=== PATIENT | female | born 1950 | race Caucasian/White ===

== ENCOUNTER 2017-10-22 20:05 | Observation (INO) | payer MEDICARE ==
[~2017-10-22] VITALS: Ht 167.6 cm; Wt 92.1 kg
[~2017-10-22 20:05] MED LIST: ALBU0.086 INH; ALPR-138 PO; CARB200T16; CEFT500T PO; FURO20TA PO; IPRA0.02 INH; LOSA25TA31 PO; PHEN30TA32; PRAV40TA PO; PRED10PA PO
[2017-10-22 20:07] VITALS: BP 185/91; PULSE 101; RESP 32; TEMP 98.4; O2SAT 96
[2017-10-22 20:30] VITALS: BP_SYST 213; BP_SYST 214; BP_DIAS 100; BP_DIAS 101; PULSE 93; RESP 28
[2017-10-22] MEDS ORDERED: PRAV20TA2 PO (20:37)
[2017-10-22] MEDS ORDERED: COZA25TA PO (20:37)
[2017-10-22] MEDS ORDERED: LOSA25TA PO (20:37)
[2017-10-22] MEDS ORDERED: PHEN-523 PO (20:37)
[2017-10-22] MEDS ORDERED: ALBU6.7H INH (20:37)
[2017-10-22] MEDS ORDERED: TEGR200T PO (20:37)
[2017-10-22] MEDS ORDERED: FURO1TAB62 PO (20:37)
[2017-10-22] MEDS ORDERED: methylPREDNISolone SOD SUCC 125 MG/2 ML VIAL IV PUSH ONE (20:45)
[2017-10-22] MEDS ORDERED: SODIUM CHLORIDE 0.9% FLUSH 10 ML FLUSH IVF PRN (20:45)
[2017-10-22] MEDS: RESP: ALBUTEROL 2.5 MG/IPRATROPIUM 0.5 MG NEB (SCH) INH ×2 (20:49→20:50)
[2017-10-22 20:50] VITALS: O2SAT 97
[2017-10-22 21:01] LABS: HEMATOCRIT 39.3 % (35.0-46.0); HEMOGLOBIN 13.4 GM/DL (11.6-15.3); MEAN CELL VOLUME 90.9 FL (80.0-100.0); MEAN CORPUSCULAR HEMOGLOBIN 30.9 PG (27.0-34.0); MEAN PLATELET VOLUME 8.3 FL (7.0-11.0); PLATELET COUNT 151 TH/MM3 (150-450); RED BLOOD COUNT 4.32 MIL/MM3 (4.00-5.30); RED CELL DISTRIBUTION WIDTH 12.7 % (11.6-17.2); WHITE BLOOD COUNT 6.9 TH/MM3 (4.0-11.0)
[2017-10-22 21:05] LABS: CHLORIDE 98 MEQ/L (98-107); SODIUM (NA) 132 MEQ/L (136-145)
[2017-10-22 21:08] LABS: ALBUMIN 4.1 GM/DL (3.4-5.0); BICARBONATE 26.5 MEQ/L (21.0-32.0); CALCIUM 9.2 MG/DL (8.5-10.1); GLUCOSE,RANDOM 102 MG/DL (74-106)
[2017-10-22 21:09] LABS: BLOOD UREA NITROGEN 17 MG/DL (7-18)
[2017-10-22 21:11] LABS: ALT (GPT) 25 U/L (10-53); AST (GOT) 28 U/L (15-37)
[2017-10-22 21:12] LABS: CREATININE 0.85 MG/DL (0.50-1.00); GLOMERULAR FILTRATION RATE 66 ML/MIN (>89)
[2017-10-22 21:13] LABS: TOTAL BILIRUBIN ADULT 0.3 MG/DL (0.2-1.0); TOTAL PROTEIN 7.6 GM/DL (6.4-8.2)
[2017-10-22 21:14] LABS: ALKALINE PHOSPHATASE 107 U/L (45-117)
[2017-10-22 21:15] LABS: BANDS 1 % (0-6); LYMPHOCYTES 31 % (9-44); MONOCYTES 6 % (0-8); NEUTROPHIL # MANUAL DIFF 4.3 TH/MM3 (1.8-7.7); POLYS (SEG NEUTROPHILS) 62 % (16-70)
[2017-10-22 21:16] LABS: TROPONIN I LESS THAN 0.02 NG/ML (0.02-0.05)
[2017-10-22 21:23] VITALS: BP 165/76; PULSE 98; RESP 22; O2SAT 98
--- NOTE | 2017-10-22 21:43 | PD ---
HPI Chief Complaint: Respiratory Distress Time Seen by Provider: 20:33 Travel History International Travel<30 days: No Contact w/Intl Traveler<30days: No Traveled to known affect area: No History of Present Illness HPI This 67-year-old woman who presents to the emergency department complaining of cough cold symptoms ongoing for the past week or so. She went to visit family picked up a cold from them. She has a history of COPD. She has been on oxygen in the past but is been doing really well for the past year and has not needed it. Over the past week she has had increase of bronchodilators, increase her oxygen. She has had nonproductive cough. Some chills. No definite fevers. No lower extreme any swelling. Otherwise had been feeling well before that. History Past Medical History Narrative Medical CVA COPD Hyperlipidemia Hypertension Seizure History of DVT, IVC filter in place Social History Alcohol Use: No Tobacco Use: No Allergies-Medications (Allergen,Severity, Reaction): Coded Allergies: morphine (Verified Allergy, Severe, Hives, 10/22/17) propoxyphene (Unverified Allergy, Severe, HIVES, 10/22/17) Reported Meds & Prescriptions Reported Meds & Active Scripts Active Reported Proventil Hfa 6.7 GM Inh (Albuterol Sulfate) 90 Mcg/Act Aer 2 Puff INH Q6H PRN Pravastatin 20 Mg Tab 20 Mg PO DAILY Losartan (Losartan Potassium) 25 Mg Tab 25 Mg PO DAILY Phenobarbital 30 Mg Tab 30 Mg PO TID Cozaar (Losartan Potassium) 25 Mg Tab 25 Mg PO DAILY Lasix (Furosemide) 20 Mg Tab 20 Mg PO DAILY Tegretol (Carbamazepine) 200 Mg Tab 200 Mg PO BID Review of Systems Except as stated in HPI: all other systems reviewed are Neg Physical Exam Narrative GENERAL: Well-appearing 67-year-old woman, mild to moderate respiratory distress per SKIN: Focused skin assessment warm/dry. HEAD: Atraumatic. Normocephalic. EYES: Pupils equal and round. No scleral icterus. No injection or drainage. ENT: No nasal bleeding or discharge. Mucous membranes pink and moist. NECK: Trachea midline. No JVD. CARDIOVASCULAR: Regular rate and rhythm. No murmur appreciated. RESPIRATORY: Decreased breath sounds throughout, quiet, faint wheezing heard. GASTROINTESTINAL: Abdomen soft, non-tender, nondistended. Hepatic and splenic margins not palpable. MUSCULOSKELETAL: No obvious deformities. Trace edema. NEUROLOGICAL: Awake and alert. No obvious cranial nerve deficits. Motor grossly within normal limits. Normal speech. PSYCHIATRIC: Appropriate mood and affect; insight and judgment normal. Data Data Last Documented VS Vital Signs Date Time Temp Pulse Resp B/P (MAP) Pulse Ox O2 Delivery O2 Flow Rate FiO2 10/22/17 22:09 89 28 170/84 (112) 96 Nasal Cannula 2.00 10/22/17 20:07 98.4 Orders Orders Complete Blood Count With Diff (10/22/17 20:36) Comprehensive Metabolic Panel (10/22/17 20:36) Troponin I (10/22/17 20:36) Iv Access Insert/Monitor (10/22/17 20:36) Electrocardiogram (10/22/17 20:36) Ecg Monitoring (10/22/17 20:36) Oximetry (10/22/17 20:36) Oxygen Administration (10/22/17 20:36) Chest, Single Ap (10/22/17 20:36) Sodium Chloride 0.9% Flush (Ns Flush) (10/22/17 20:45) Methylprednisolone So Succ Inj (Solumedr (10/22/17 20:45) Albuterol-Ipratropium Neb (Duoneb Neb) (10/22/17 20:45) B-Type Natriuretic Peptide (10/22/17 20:52) Influenzae A/B Antigen (10/22/17 20:53) Vital Signs (Adult) Q4H (10/22/17 22:39) Activity Oob Ad Nancy (10/22/17 ) Diet Regular Basic (10/23/17 Breakfast) Albuterol-Ipratropium Neb (Duoneb Neb) (10/23/17 00:00) Albuterol Neb (Albuterol Neb) (10/22/17 22:45) Methylprednisolone So Succ Inj (Solumedr (10/22/17 23:00) Azithromycin (Zithromax) (10/22/17 23:00) Resp Oxygen Fer C Titrat 1-4 L (10/22/17 ) Enoxaparin Inj (Lovenox Inj) (10/22/17 23:00) Carbamazepine (Tegretol) (10/23/17 09:00) Furosemide (Lasix) (10/23/17 09:00) Losartan (Cozaar) (10/23/17 09:00) Pravastatin (Pravachol) (10/23/17 09:00) Phenobarbital (Phenobarbital) (10/23/17 09:00) Admit Order (Ed Use Only) (10/22/17 ) Labs Laboratory Tests Test 10/22/17 20:40 White Blood Count 6.9 TH/MM3 Red Blood Count 4.32 MIL/MM3 Hemoglobin 13.4 GM/DL Hematocrit 39.3 % Mean Corpuscular Volume 90.9 FL Mean Corpuscular Hemoglobin 30.9 PG Mean Corpuscular Hemoglobin Concent 34.0 % Red Cell Distribution Width 12.7 % Platelet Count 151 TH/MM3 Mean Platelet Volume 8.3 FL CBC Comment AUTO DIFF Differential Total Cells Counted 100 Neutrophils % (Manual) 62 % Band Neutrophils % 1 % Lymphocytes % 31 % Monocytes % 6 % Neutrophils # (Manual) 4.3 TH/MM3 Differential Comment FINAL DIFF MANUAL Platelet Estimate NORMAL Platelet Morphology Comment NORMAL Red Cell Morphology Comment NORMAL Blood Urea Nitrogen 17 MG/DL Creatinine 0.85 MG/DL Random Glucose 102 MG/DL Total Protein 7.6 GM/DL Albumin 4.1 GM/DL Calcium Level 9.2 MG/DL Alkaline Phosphatase 107 U/L Aspartate Amino Transf (AST/SGOT) 28 U/L Alanine Aminotransferase (ALT/SGPT) 25 U/L Total Bilirubin 0.3 MG/DL Sodium Level 132 MEQ/L Potassium Level 4.2 MEQ/L Chloride Level 98 MEQ/L Carbon Dioxide Level 26.5 MEQ/L Anion Gap 8 MEQ/L Estimat Glomerular Filtration Rate 66 ML/MIN Troponin I LESS THAN 0.02 NG/ML B-Type Natriuretic Peptide 13 PG/ML [facility] Medical Decision Making Medical Screen Exam Complete: Yes Emergency Medical Condition: Yes Interpretation(s) My review of EKG: Normal sinus rhythm at a rate of 96, MI interval little bit short at 119, normal axis, no definite evidence of acute ischemia. CBC is unremarkable. CMP is unremarkable Troponin negative BNP 13 Influenza negative Chest x-ray negative Differential Diagnosis COPD, pneumonia, bronchitis, CHF, ACS, other Narrative Course Medical decision making 67-year-old woman, cough cold symptoms likely COPD exacerbation. Generally looks well. Will check labs, x-ray, reassess. FINAL: 67-year-old woman who presents to the emergency department with COPD exacerbation symptoms, poor air movement in moderate distress still. I still think this is a COPD exacerbation. I do not think she has a PE or occult pneumonia. I spoke with the 4 to healthcare admitting doc. Will admit for observation for COPD exacerbation. Diagnosis Primary Impression: COPD exacerbation Admitting Information Admitting Physician Requests: Observation Disposition: 01 DISCHARGE HOME Condition: Stable Truman Hargrove MD October 22, 2017 21:43
--- NOTE | 2017-10-22 22:03 | RADRPT ---
EXAM DATE/TIME: 10/22/2017 20:51 [facility] COMPARISON: CHEST SINGLE AP, February 24, 2012, 17:26. INDICATIONS : Shortness of breath. MEDICAL HISTORY : None. SURGICAL HISTORY : None. ENCOUNTER: Initial ACUITY: 1 day PAIN SCORE: 0/10 LOCATION: Bilateral chest FINDINGS: A single view of the chest demonstrates the lungs to be symmetrically aerated without evidence of mas s, infiltrate or effusion. The cardiomediastinal contours are unremarkable. Osseous structures are intact. CONCLUSION: No acute disease. Isaiah Salgado MD on October 22, 2017 at 22:01 Board Certified Radiologist. This report was verified electronically.
[2017-10-22 22:09] VITALS: BP 170/84; PULSE 89; RESP 28; O2SAT 96
[2017-10-22] MEDS ORDERED: TEMAZEPAM 15 MG CAP PO PRN (22:45)
[2017-10-22] MEDS ORDERED: RESP: ALBUTEROL 2.5 MG/3 ML NEB (PRN) INH (22:45)
[2017-10-22] MEDS ORDERED: ACETAMINOPHEN 325 MG TAB PO PRN (22:45)
[2017-10-22] MEDS: methylPREDNISolone SOD SUCC 125 MG/2 ML VIAL IV PUSH SCH (23:00)
[2017-10-22] MEDS ORDERED: ENOXAPARIN SODIUM 40 MG/0.4 ML SYRINGE SQ SCH (23:00)
[2017-10-22 23:20] VITALS: BP 172/77; PULSE 87; RESP 26; O2SAT 96
[2017-10-23] VITALS (9 sets, daily range): BP systolic 123–190; BP diastolic 53–98; PULSE 82–96; RESP 18–24; TEMP 97.1–97.9; O2SAT 94–97
[2017-10-23] MEDS: RESP: ALBUTEROL 2.5 MG/IPRATROPIUM 0.5 MG NEB (SCH) INH ×7 (00:29→23:19)
[2017-10-23] MEDS: carBAMazepine 200 MG TAB PO SCH ×3 (01:00→20:36)
[2017-10-23] MEDS: PHENobarbital 32.4 MG TAB PO SCH ×4 (01:00→17:13)
[2017-10-23] MEDS: methylPREDNISolone SOD SUCC 125 MG/2 ML VIAL IV PUSH SCH ×4 (03:10→23:27)
[2017-10-23] MEDS: PRAVASTATIN SOD 20 MG TAB PO SCH (08:09)
[2017-10-23] MEDS: AZITHROMYCIN 250 MG TAB PO SCH (08:09)
[2017-10-23] MEDS: LOSARTAN 25 MG TAB PO SCH (08:09)
[2017-10-23] MEDS: FUROSEMIDE 20 MG TAB PO SCH (08:10)
[2017-10-23] MEDS ORDERED: carBAMazepine 200 MG TAB PO SCH (09:00)
[2017-10-23] MEDS ORDERED: PHENobarbital 32.4 MG TAB PO SCH (09:00)
--- NOTE | 2017-10-23 13:48 | EKG ---
Date Performed: 10/22/2017 Time Performed: 20:14:29 PTAGE: 67 years EKG: Sinus rhythm WITH SHORT IL INTERVAL BORDERLINE ECG INTERPRETATION BASED ON A DEFAULT AGE OF 38 YEARS PREVIOUS TRACING : 02/24/2012 18.15 Since the previous tracing, no significant change not ed DOCTOR: Jason Morillo Interpretating Date/Time 10/23/2017 13:45:33
--- NOTE | 2017-10-23 14:10 | MH ---
cc: Genesis Caldwell MD DATE OF ADMISSION: 10/22/2017 ADMITTING DIAGNOSIS: Chronic obstructive pulmonary disease exacerbation. HISTORY OF PRESENT ILLNESS: Ms. Samayoa is a 67-year-old female patient of Dr. Jang, who presents to the emergency room, brought by her for increasing shortness of breath. She does have a history of COPD and follows with Dr. Husain as her dining host. She states that she has 2 liters of oxygen that she uses intermittently at home as well as a nebulizer. Apparently, she has had to use her oxygen on a regular basis this last week, as well as using her nebulizer every 4 hours. She states that she was in contact with family members who had colds and her symptoms started with the development of a sore throat and cough. She became progressively worse during the week and finally yesterday where at a play, her was accompanying her and became concerned and brought her into the emergency room as he felt that she was getting worse. In the emergency room, she received IV Solu-Medrol and breathing treatments and this morning she tells me that she is feeling much better as compared to yesterday. Apparently it has been several years since she had her last exacerbation, but she does say that she does improve with the IV Solu-Medrol. She has been to Dr. Husain at times and received treatment there with IV, but according to her, she is a hard stick and the last time they actually had to send her to the hospital to get the IV started. She denies any fevers or chills. As stated, she has had the cough and some productive phlegm. No chest pain. She does state that she gets some chest tightness when she has trouble breathing. She has a prior history of DVT and PE in the past, and she actually has a Ash[place] filter in place. I was actually able to look into her [facility] records and it looks like at one point she was following with hematology/oncology and they had her on chronic Lovenox therapy for recurrent DVTs. PAST MEDICAL HISTORY: Seizure disorder since she was approximately 11, COPD, hyperlipidemia, hypertension, recurrent DVT and PE status with post-[place] filter. PAST SURGICAL HISTORY: Includes rectocele repair, right hip replacement, the Ashutosh filter placement, tonsillectomy, cholecystectomy and appendectomy. ALLERGIES: INCLUDE MORPHINE AND DARVON. MEDICATIONS: 1. Albuterol inhaler that she uses as needed. 2. Pravastatin 20 mg daily. 3. Losartan 20 mg daily. 4. Tegretol. She takes 400 mg twice a day. 5. Phenobarbital 64.8 mg twice a day. 6. Lasix 20 mg daily. HABITS: She has an I would say at least [id number] smoking. She stopped smoking 15 years ago. She does not consume alcohol. SOCIAL HISTORY: She is . She lives in [place]. She is a retired [employer]. She states that she uses a wheelchair or walker to get around the house primarily because of shortness of breath, that she needs the oxygen when she leaves the house, it sounds like REVIEW OF SYSTEMS: See HPI. She denies any actual chest pain or palpitations. No abdominal pain. She does say she suffers from chronic constipation, but really does not use anything to relieve herself. She does state that she drinks a lot of water and urinates frequently. FAMILY HISTORY: Noncontributory. PHYSICAL EXAMINATION: VITAL SIGNS: Temperature is 97.1, pulse is 82, respirations 18, blood pressure is 135/60, pulse oximetry is 95% on 2 liters. GENERAL: She is lying in the hospital bed. She looks comfortable when I walk into the room. She did not appear to be in any acute distress. HEENT: She is normocephalic, atraumatic. EOM is intact. She is overweight. NECK: Supple. LUNGS: Diminished breath sounds throughout but I hear no wheezing, rhonchi, or rales. HEART: Regular. She is not tachycardic. ABDOMEN: Globose. She has got bowel sounds present in all 4 quadrants. EXTREMITIES: Show no clubbing, cyanosis or edema. She moves all 4 extremities well. DIAGNOSTIC STUDIES: Lab work that was done when she presented showed a white count of 6.9 with hemoglobin of 13.4, hematocrit of 39.3, platelet count was 151. Sodium was 132 with a potassium of 4.2, BUN was 17, creatinine was 0.85. LFTs were normal. Troponin was less than 0.02. BNP was 13. She was negative for flu antigens. Chest x-ray was clear. ASSESSMENT AND PLAN: A 67-year-old female with history of chronic obstructive pulmonary presenting to the emergency room with increased work of breathing, on presentation. She received IV Solu-Medrol last night and breathing treatments. She is continued on the IV Solu-Medrol. This morning, she looks improved and tells me that she does feel a lot better. She has already been given azithromycin. I will continue that with the steroids and the breathing treatment. She does have a nebulizer and oxygen already at home. If she continues to clinically improve, we may be able to discharge her on an oral prednisone taper within the next day or so. In terms of her seizure disorder, we will continue on her phenobarbital and Tegretol. She tells me that she has been seizure free for at least 5 years. Continue her medications hypertension, her hyperlipidemia. Her blood pressure was elevated initially on presentation to the emergency room, but today it has come down quite nicely. She does have a history of recurrent deep vein thrombosis and pulmonary embolism as well as a Ashutosh filter. It looks like at one point, even after the Ashutosh filter, she was seeing oncology and getting subcutaneous Lovenox. At this point, given her history, we will continue the dose of subcutaneous Lovenox she was given by oncology while she has decreased mobility in the hospital. I am actually going to have physical therapy try to see her and see how she does with ambulation, as she tells me that normally at rest, her oxygen level is fairly good. It is more when she ambulates that we see a significant drop. Further recommendations as the case develops. Genesis Caldwell MD CAS/JAYSON , 01:40 PM , 02:09 PM
[2017-10-23 14:18] LABS: CALCIUM 9.1 MG/DL (8.5-10.1)
[2017-10-23 14:19] LABS: BICARBONATE 26.8 MEQ/L (21.0-32.0)
[2017-10-23 14:22] LABS: CREATININE 0.88 MG/DL (0.50-1.00)
[2017-10-23] MEDS ORDERED: ENOXAPARIN SODIUM 100 MG/ML SYRINGE SQ SCH (23:00)
[2017-10-24] VITALS: BP 134/60; PULSE 71; RESP 18; TEMP 96.1; O2SAT 97
[2017-10-24] MEDS: RESP: ALBUTEROL 2.5 MG/IPRATROPIUM 0.5 MG NEB (SCH) INH ×3 (03:45→11:39)
[2017-10-24] MEDS: methylPREDNISolone SOD SUCC 125 MG/2 ML VIAL IV PUSH SCH ×2 (05:41→11:08)
[2017-10-24 08:00] VITALS: BP 136/65; PULSE 72; RESP 16; TEMP 97; O2SAT 96
[2017-10-24] MEDS: FUROSEMIDE 20 MG TAB PO SCH (08:24)
[2017-10-24] MEDS: carBAMazepine 200 MG TAB PO SCH (08:25)
[2017-10-24] MEDS: AZITHROMYCIN 250 MG TAB PO SCH (08:25)
[2017-10-24] MEDS: PRAVASTATIN SOD 20 MG TAB PO SCH (08:25)
[2017-10-24] MEDS: LOSARTAN 25 MG TAB PO SCH (08:25)
[2017-10-24] MEDS: PHENobarbital 32.4 MG TAB PO SCH ×2 (08:25→13:59)
[2017-10-24 08:54] VITALS: O2SAT 97
[2017-10-24 12:00] VITALS: BP 179/77; PULSE 81; RESP 18; TEMP 96.6; O2SAT 97
--- NOTE | 2017-10-24 13:46 | HHI.PR ---
Subjective Remarks still some cough, sob with exertion (chronic) ok at rest Objective Vitals Vital Signs Date Time Temp Pulse Resp B/P (MAP) Pulse Ox O2 Delivery O2 Flow Rate FiO2 10/24/17 12:00 96.6 81 18 179/77 (111) 97 10/24/17 08:54 97 Nasal Cannula 2.00 10/24/17 08:00 97.0 72 16 136/65 (88) 96 10/24/17 00:00 96.1 71 18 134/60 (84) 97 10/23/17 20:00 97.3 86 18 160/72 (101) 95 10/23/17 19:45 95 Nasal Cannula 2.00 10/23/17 15:27 97.4 83 18 123/53 (76) 96 10/24/17 10/24/17 10/25/17 15:00 23:00 07:00 # Bowel Movements 1 Result Diagram: 10/22/17203910/23/171347 Imaging Last Impressions Chest X-Ray 10/22/172035 Signed Impressions: Service Date/Time: Sunday, October 22, 2017 20:51 - CONCLUSION: No acute disease. Isaiah Salgado MD Objective Remarks Sitting in bed resting comfortably wearin oxygen lungs diminshed throughout, no wheezing heart rrr not tachycardic ext no edema A/P Problem List: (1) COPD exacerbation ICD Codes: J44.1 - Chronic obstructive pulmonary disease with (acute) exacerbation Status: Acute Plan: clinically improved with IV solumedrol , she is sob with exertion at baseline needing oxygen, she has oxygen and nebulizer at home will discharge on oral prednisone taper and azithromycin. Discussed using Robitussin or Mucinex for her cough but she states she doesn't like to use those medications Discharge Planning discharge home today Genesis Caldwell MD October 24, 2017 13:46
[2017-10-24] MEDS ORDERED: PRED10 PO (14:00)
[2017-10-24] MEDS ORDERED: AZIT250T3 PO (14:00)
[2017-10-24] MEDS ORDERED: PHEN-523 PO (14:00)
[2017-10-24] MEDS ORDERED: Albuterol-Ipratropium Neb INH (14:00)
== END 2017-10-24 15:23 | disposition home or self-care (01) ==
LOC: PHED 20:05 → PHEDA 22:44 → PH3B 10-23 01:32
PROVIDERS: ADMIT Legal Medicine; ATTEND Legal Medicine
DX: J44.1 Chronic obstructive pulmonary disease with (acute) exacerbation (principal); G40.909 Epilepsy, unspecified, not intractable, without status epilepticus; I10 Essential (primary) hypertension; E78.5 Hyperlipidemia, unspecified; Z79.899 Other long term (current) drug therapy; Z86.73 Personal history of transient ischemic attack (TIA), and cerebral infarction without residual deficits; Z86.711 Personal history of pulmonary embolism; Z86.718 Personal history of other venous thrombosis and embolism; Z87.891 Personal history of nicotine dependence
CPT/HCPCS: 71045; 80048; 80053; 83880; 84484; 85007; 85027; 87804; 93005; 94640; 94664; 96372; 96374; 96376; 97162; 99285; G0378; G8987; G8988; J1650; J2930